=== PATIENT | female | born 1965 | race African-American/Black ===

== ENCOUNTER 2016-07-19 14:28 | Emergency (ER) | payer OTHER ==
[2016-07-19 14:33] VITALS: BP 119/79; PULSE 89; TEMP 98.2; BMI 30.1
--- NOTE | 2016-07-19 15:48 | PDOC ---
History of Present Illness - General Chief Complaint: Cold Symptoms Stated Complaint: BODY ACHES Time Seen by Provider: 07/19/16 15:13 History Source: Patient Exam Limitations: No Limitations - History of Present Illness Initial Comments: 07/19/16 15:42 51 yr female no medical history c/o 2 weeks pain , soreness to arms, legs back. Pt denies fever or chills no abd pain neg weight loss or gain. Pt denies foreign travel Severity: mild Past History - Past Medical History Allergies/Adverse Reactions: Allergies Allergy/AdvReac Type Severity Reaction Status Date / Time No Known Allergies Allergy Verified 07/19/16 14:30 Home Medications: Ambulatory Orders Ibuprofen [Motrin -] 600 mg PO TID PRN #21 tablet 07/19/16 Psychiatric Problems: Yes (ANXIETY.) - Surgical History Abdominal Surgery: Yes - Psycho/Social/Smoking Cessation Hx Anxiety: Yes Suicidal Ideation: No Smoking Status: Yes Smoking History: Former smoker Have you smoked in the past 12 months: Yes Number of Cigarettes Smoked Daily: 12 If you are a former smoker, when did you quit?: 1 year ago Information on smoking cessation initiated: No Hx Alcohol Use: No Drug/Substance Use Hx: No Substance Use Type: None Review of Systems - Review of Systems Able to Perform ROS?: Yes Is the patient limited Russian proficient: No Constitutional: No: Symptoms Reported HEENTM: No: Symptoms Reported Respiratory: No: Symptoms reported Cardiac (ROS): No: Symptoms Reported ABD/GI: No: Symptoms Reported : No: Symptoms Reported Musculoskeletal: Yes: See HPI, Muscle Pain, Muscle Weakness *Physical Exam - Vital Signs Last Vital Signs Temp Pulse Resp BP Pulse Ox 98.2 F 89 18 119/79 99 07/19/16 14:31 07/19/16 14:31 07/19/16 14:31 07/19/16 14:31 07/19/16 14:31 - Physical Exam General Appearance: Yes: Nourished, Appropriately Dressed HEENT: positive: EOMI, DIRK, TMs Normal, Pharynx Normal Neck: positive: Supple. negative: Tender, Lymphadenopathy (R), Lymphadenopathy (L) Respiratory/Chest: positive: Lungs Clear, Normal Breath Sounds. negative: Chest Tender Cardiovascular: positive: Regular Rhythm, Regular Rate Gastrointestinal/Abdominal: positive: Normal Bowel Sounds, Soft Extremity: positive: Normal Capillary Refill, Normal Inspection, Normal Range of Motion Integumentary: positive: Normal Color, Dry, Warm Neurologic: positive: Fully Oriented, Alert, Normal Mood/Affect, Normal Response , Motor Strength 06/24 ED Treatment Course - LABORATORY CBC & Chemistry Diagram: 07/19/16 15:50 07/19/16 15:50 Medical Decision Making - Medical Decision Making 07/19/16 15:44 cc: muscle pain , muscle weakness for 2 weeks denies fever, no abd pain neg nvd neg incontinence of urine or bowel neg chest pain or nasuea, pt denies fatigue will check labs, toradol, urine pt has apt MondayJuly 22 with her PMD 07/19/16 15:48 pt states her pain has improved after the toradol injection, I have given pt copies of her labs, all questions asked and answered. Pt will follow with her PMD monday as planned. Pt asking for work note for 2 days. 07/19/16 15:49 07/19/16 16:04 07/19/16 18:47 07/19/16 18:48 *DC/Admit/Observation/Transfer Diagnosis at time of Disposition: Muscle pain - Discharge Dispostion Disposition: HOME Condition at time of disposition: Fair - Prescriptions Prescriptions: Ibuprofen [Motrin -] 600 mg PO TID PRN #21 tablet PRN Reason: Pain - Patient Instructions Additional Instructions: take motrin as directed for any pain follow with your doctor as scheduled on Monday bring copies of the labs with you Drink pleanty of water to stay hydrated - Post Discharge Activity Work/School Note: Back to Work
[2016-07-19 16:01] LABS: URINE APPEARANCE CLEAR; URINE BILIRUBIN NEGATIVE (NEGATIVE); URINE BLOOD NEGATIVE (NEGATIVE); URINE COLOR STRAW; URINE GLUCOSE (UA) NEGATIVE (NEGATIVE); URINE KETONE NEGATIVE (NEGATIVE); URINE LEUK ESTERASE NEGATIVE (NEGATIVE); URINE NITRITE NEGATIVE (NEGATIVE); URINE PROTEIN NEGATIVE (NEGATIVE); URINE UROBILINOGEN NEGATIVE E.U./dl (0.2-1.0)
[2016-07-19 16:04] LABS: BASOPHIL 0.8 % (0-2.0); EOSINOPHIL 2.6 % (0-4.5); MCH 28.3 pg (25.7-33.7); MCHC 32.4 g/dl (32.0-36.0); MEAN CELL VOLUME 87.1 fl (80-96); NEUTROPHILS 54.2 % (42.8-82.8); PLATELET COUNT 258 K/MM3 (134-434); RDW 12.9 % (11.6-15.6); WHITE BLOOD COUNT 6.4 K/mm3 (4.0-10.0)
[2016-07-19] MEDS ORDERED: KETOROLAC TROMETHAMINE 60 MG/2 ML VIAL IM ONE (16:43)
[2016-07-19] MEDS ORDERED: KETOROLAC TROMETHAMINE 60 MG/2 ML VIAL ONE (16:56)
[2016-07-19 16:58] LABS: ALBUMIN 3.7 g/dl (3.4-5.0); BILIRUBIN,TOTAL 0.3 mg/dL (0.2-1.0); CALCIUM 8.9 mg/dL (8.5-10.1); COCKROFT - GAULT 72.5985; TOT PROT 7.1 g/dl (6.4-8.2)
== END 2016-07-19 17:17 | disposition home or self-care (01) ==
LOC: JERFT 14:28
PROC: 3E0233Z Introduction of Anti-inflammatory into Muscle, Percutaneous Approach (ICD-10-PCS; principal; 2016-07-19)
DX: M62.81 Muscle weakness (generalized) (principal); M79.601 Pain in right arm; M79.602 Pain in left arm; M79.604 Pain in right leg; M79.605 Pain in left leg; M54.89 Other dorsalgia
CPT/HCPCS: 36415; 80053; 81003; 82330; 83735; 84703; 85025; 86618; 99281-25

== ENCOUNTER 2016-12-22 16:16 | Emergency (ER) | payer OTHER ==
--- NOTE | 2016-12-22 16:19 | PDOC ---
Rapid Medical Evaluation Time Seen by Provider: 12/22/16 16:17 Medical Evaluation: Allergies Allergy/AdvReac Type Severity Reaction Status Date / Time No Known Allergies Allergy Verified 07/19/16 14:30 12/22/16 16:18 I have performed a brief in-person evaluation of this patient. The patient presents with a chief complaint of: bleach in left eye. Irrigated with saline Pertinent physical exam findings: mild erythema to sclera, no tearing, No visual changes, c/o tingling I have ordered the following: none-fast track The patient will proceed to the ED for further evaluation.
[2016-12-22 16:20] VITALS: BP 129/70; PULSE 97; TEMP 98; BMI 32.1
--- NOTE | 2016-12-22 17:21 | PDOC ---
History of Present Illness - General Chief Complaint: Eye Problem Stated Complaint: INJURY Time Seen by Provider: 12/22/16 16:17 History Source: Patient Exam Limitations: No Limitations - History of Present Illness Initial Comments: 12/22/16 17:15 Patient came for evaluation of bleach splash in a diluted solution to her left eye. was at work and a dirty rag splashed into the bucket with a bleach solution was and it splashed into her left eye. used 1 L of saline eye wash at work but came for evaluation. still has some tingling however visual acuity is within normal limits. No other injury. Occurred: reports: just prior to arrival, this afternoon Severity: reports: moderate Pain Location: reports: face Loss of Consciousness: no loss of consciousness Past History - Travel Traveled outside of the country in the last 30 days: No Close contact w/someone who was outside of country & ill: No - Past Medical History Allergies/Adverse Reactions: Allergies Allergy/AdvReac Type Severity Reaction Status Date / Time No Known Allergies Allergy Verified 12/22/16 16:20 Home Medications: Ambulatory Orders Erythromycin 0.5% Eye Ointment [Erythromycin 0.5% Eye Ointment -] 1 applic OS Q3H6XD #1 tube 12/22/16 COPD: No Psychiatric Problems: Yes (ANXIETY.) - Surgical History Abdominal Surgery: Yes - Suicide/Smoking/Psychosocial Hx Smoking Status: Yes Smoking History: Current every day smoker Have you smoked in the past 12 months: Yes Number of Cigarettes Smoked Daily: 5 If you are a former smoker, when did you quit?: 1 year ago Information on smoking cessation initiated: No Hx Alcohol Use: No Drug/Substance Use Hx: No Substance Use Type: None Review of Systems - Review of Systems Able to Perform ROS?: Yes Is the patient limited [place]an proficient: Yes Constitutional: Yes: See HPI, Malaise. No: Symptoms Reported, Fever HEENTM: Yes: Symptoms Reported, See HPI, Eye Pain, Tearing. No: Blurred Vision , Recent change in vision, Double Vision All Other Systems: Reviewed and Negative *Physical Exam - Vital Signs Last Vital Signs Temp Pulse Resp BP Pulse Ox 98 F 97 H 18 129/70 98 12/22/16 16:17 12/22/16 16:17 12/22/16 16:17 12/22/16 16:17 12/22/16 16:17 - Physical Exam General Appearance: Yes: Nourished, Appropriately Dressed, Apparent Distress, Mild Distress, Moderate Distress HEENT: positive: DIRK (with injected left sclera= no ulceration or corneal defects noted, visual acuity 20/20 bilateral ), TMs Normal, Pharynx Normal Neck: positive: Supple. negative: Tender Respiratory/Chest: positive: Lungs Clear Musculoskeletal: positive: Normal Inspection Extremity: positive: Normal Capillary Refill, Normal Inspection, Normal Range of Motion Integumentary: positive: Normal Color, Dry, Warm Neurologic: positive: patient care associate II-XII NML intact, Fully Oriented, Alert, Normal Mood/ Affect, Normal Response, Motor Strength 5/5 Progress Note - Progress Note Progress Note: Bleach splash, with initial pH of greater than 7.5. We will irrigate to 7 Medical Decision Making - Medical Decision Making 12/22/16 17:52 1 L of normal saline completed, pH between 7 and 7.5. Visual acuity 20/20 bilaterally. We will provide additional liter of IV saline to left eye for irrigation 12/22/16 19:33 second liter of normal saline completed. PH is 7, states feels much improved. Erythromycin ointment appld patient understands will follow up with ophthalmology tomorrow *DC/Admit/Observation/Transfer Diagnosis at time of Disposition: Chemical conjunctivitis of left eye - Discharge Dispostion Disposition: HOME Condition at time of disposition: Stable Admit: No - Prescriptions Prescriptions: Erythromycin 0.5% Eye Ointment [Erythromycin 0.5% Eye Ointment -] 1 applic OS Q3H6XD #1 tube - Referrals Referrals: Anupam Morrow [Staff Physician] - - Patient Instructions Printed Discharge Instructions: DI for Chemical Eye Burn Additional Instructions: Continue using normal saline/saline eye irrigation tonight before bed Erythromycin ophthalmic ointment 3 times a day for the next 2 days then as needed Have thorough evaluation by ophthalmology tomorrow Return to emergency department in pain, redness, visual changes. - Post Discharge Activity Forms/Work/School Notes: Back to Work
[2016-12-22] MEDS ORDERED: ERYTHROMYCIN 0.5% OPHTHALMIC OINTMENT 3.5 GM TUBE OS ONE (17:55)
[2016-12-22] MEDS ORDERED: ERYTHROMYCIN 0.5% OPHTHALMIC OINTMENT 3.5 GM TUBE ONE (18:01)
== END 2016-12-22 18:12 | disposition home or self-care (01) ==
LOC: JERFT 16:16
PROC: 4A07X0Z Measurement of Visual Acuity, External Approach (ICD-10-PCS; principal; 2016-12-22)
PROC: 3E1CX8Z Irrigation of Eye using Irrigating Substance (ICD-10-PCS; 2016-12-22)
DX: T54.91XA Toxic effect of unspecified corrosive substance, accidental (unintentional), initial encounter (principal); H10.212 Acute toxic conjunctivitis, left eye; Y92.128 Other place in nursing home as the place of occurrence of the external cause; Y93.H9 Activity, other involving exterior property and land maintenance, building and construction; Y99.0 Civilian activity done for income or pay
CPT/HCPCS: 99281-25

== ENCOUNTER 2017-09-10 19:39 | Emergency (ER) | payer OTHER ==
[2017-09-10 19:45] VITALS: BP 138/74; PULSE 86; TEMP 98.7; BMI 30.9
--- NOTE | 2017-09-10 20:13 | PDOC ---
Attending Attestation - Physicial Exam PE: 09/10/17 22:09 Agree with resident exam - Medical Decision Making 09/10/17 22:09 Pt's UA is normal. She received motrin and imitrex and feels the same. Pt will be sent for CT head 09/10/17 22:31 CT head is normal. Pt has + nitrites in urine, however she is only on day 2 of abx. She is feeling imrpoved and she will be asked to follow with neuro outpatinet. 09/10/17 22:35 THIS IS A PRELIMINARY REPORT FROM IMAGING RESIDENTIAL LEASING AGENT DATE OF SERVICE: 2017-09-10 22:05:54 IMAGES: 132 EXAM: CT head without contrast HISTORY: Rule out bleed. Abnormal headache. COMPARISON: None. FINDINGS: 1. The study is degraded by artifact that appears to be detector type artifact. 2. There is no definite evidence of an acute intracranial process and no evidence of intracranial hemorrhage or mass effect. If there is a clinical suspicion of an acute intracranial process MRI of the brain may be helpful for further evaluation. 3. The ventricles are normal size. 4. The visualized portions of the orbits, paranasal and mastoid sinuses are unremarkable. 5. The bony structures are unremarkable in appearance. Individualized dose optimization techniques were used for this CT. <Nadja Zendejas - Last Filed: 09/10/17 22:35> - Resident Resident Name: Irene Woodard - ED Attending Attestation I have performed the following: I have examined & evaluated the patient, The case was reviewed & discussed with the resident, I agree w/resident's findings & plan - HPI HPI: 09/10/17 21:34 The patient is a 52 year old female, with no significant past medical history, who presents to the emergency department with, a headache. She describes her headache as right sided, dull pain, ranking an 8/10 with associated photophobia , nausea, and different from previous headaches. She reports the right side of her face to feel funny but, denies and numbness or tingling to the face. She reports to have been feeling off for the past week with associated SOB lasting a few minutes which resolves on her own or with the aid of her daughter s inhaler. She went to her PCP 3 days ago and was diagnosed with a UTI which she took antibiotics for. Allergies: NKA Past surgical history: None reported. Social history: Smoker (2 cigarettes per day). - Physicial Exam PE: 09/10/17 22:58 GENERAL: Awake, alert, and fully oriented, in no acute distress HEAD: No signs of trauma EYES: PERRLA, EOMI, sclera anicteric, conjunctiva clear ENT: Auricles normal inspection, hearing grossly normal, nares patent, oropharynx clear without exudates. Moist mucosa NECK: Normal ROM, supple, no lymphadenopathy, JVD, or masses LUNGS: Breath sounds equal, clear to auscultation bilaterally. No wheezes, and no crackles HEART: Regular rate and rhythm, normal S1 and S2, no murmurs, rubs or gallops ABDOMEN: Soft, nontender, normoactive bowel sounds. No guarding, no rebound. No masses EXTREMITIES: Normal range of motion, no edema. No clubbing or cyanosis. No cords, erythema, or tenderness NEUROLOGICAL: Cranial nerves II through XII grossly intact. Normal speech, normal gait SKIN: Warm, Dry, normal turgor, no rashes or lesions noted. <Brad Marrero - Last Filed: 09/10/17 22:58> Attestations - Attestations 09/10/17 21:34 Documentation prepared by Brad Marrero, acting as center medical and lab director for Nadja Zendejas MD. <Brad Marrero - Last Filed: 09/10/17 22:58>
[2017-09-10] MEDS ORDERED: IBUPROFEN 600 MG TABLET (FP) PO ONE ×2 (20:39→21:20)
--- NOTE | 2017-09-10 20:45 | PDOC ---
History of Present Illness - General Chief Complaint: Headache Stated Complaint: HEADACHE Time Seen by Provider: 09/10/17 20:07 - History of Present Illness Initial Comments: 09/10/17 20:48 Lucy Garza is a 52yo woman with no reported chronic medical conditions who presents today complaining of an unusual headache as well as generally feeling "off" for the past week. She states that starting last Monday she has felt "funny" though she had no specific complaints at that time. Throughout the week , she has experienced intermittent shortness of breath that occurs randomly; it has not been associated with exertion, stress, allergen exposure. Ms Garza says that the SOB would resolve if she sat calmly for a few minutes. She does not have diagnosed allergies or asthma, though her daughter does have asthma. She tried her daughter's inhaler with resolution of symptoms. Ms Garza also reports feeling lightheaded at times throughout the week, but she cannot remember exactly how long these episodes lasted. She does not recall that they occured at any specific time of day or whether they were associated with activity. She does not believe that anything brought this feeling on. Today, she felt funny again when she woke up but did not have a headache when she woke. At some point during the day, she states that she started having a headache but does not remember exactly when. She does not believe that it started suddenly. She does report occasional headaches but says this one is different. It is located only on the right side of her head, 8/10 throbbing dull pain, associated with light sensitivity and nausea. She also reports that the right side of her face feels "funny" but denies that it feels numb, tingling , painful, or weak. She denies any fevers, focal neurological symptoms, stiff or painful neck, vomiting, or rash. She has not tried any medications at home to help with her headache. Past History - Past Medical History Allergies/Adverse Reactions: Allergies Allergy/AdvReac Type Severity Reaction Status Date / Time No Known Allergies Allergy Verified 09/10/17 19:45 Home Medications: Ambulatory Orders Erythromycin 0.5% Eye Ointment [Erythromycin 0.5% Eye Ointment -] 1 applic OS Q3H6XD #1 tube 12/22/16 Sumatriptan Succinate [Imitrex] 25 mg PO QID PRN #30 tablet 09/10/17 COPD: No Psychiatric Problems: Yes (ANXIETY.) - Surgical History Abdominal Surgery: Yes - Suicide/Smoking/Psychosocial Hx Smoking Status: Yes Smoking History: Current every day smoker Have you smoked in the past 12 months: Yes Number of Cigarettes Smoked Daily: 2 If you are a former smoker, when did you quit?: 1 year ago Information on smoking cessation initiated: No Hx Alcohol Use: No Drug/Substance Use Hx: No Substance Use Type: None Review of Systems - Review of Systems Comments:: 09/10/17 20:45 General: No fevers, no chills, no weight or appetite change, no malaise. + intermittent lightheadedness HEENT: No changes in vision, no changes in hearing, no congestion, no sore throat. +headache CV: No chest pain, no palpitations, no LE edema Pulm: +Occasional SOB. No cough, no wheezing GI: No nausea or vomiting, no change in bowel habits, no melena : +Currently treated for UTI, +frequency. No urgency, no dysuria Musc: No back pain, no joint swelling, no recent injury Skin: No rash, no lesions, no erythema Endo: No excessive thirst, no heat/cold intolerance Heme: No unusual bruising or bleeding, no swollen glands Neuro: No syncope, no numbness/tingling, no focal weakness. +"funny" sensation on right face Vasc: No claudication Psych: No recent change in mood, no SI or HI *Physical Exam - Vital Signs Last Vital Signs Temp Pulse Resp BP Pulse Ox 98.7 F 86 18 138/74 100 09/10/17 19:43 09/10/17 19:43 09/10/17 19:43 09/10/17 19:43 09/10/17 19:43 - Physical Exam Comments: 09/10/17 20:46 General: Comfortable, no acute distress. Pleasant and cooperative. HEENT: PERRL, EOMI, MMM, voice normal, normal neck ROM, no LAD Cards: RRR, no murmur appreciated Pulm: Comfortable on room air, clear to auscultation bilaterally Abd: Soft, nontender, nondistended : No CVA tenderness Rectal: Normal tone, no blood noted, no perianal lesions Ext: Atraumatic. No LE edema. ROM intact. Strength 5/5 and equal bilaterally Vasc: Extremities WWP. Palpable radial and pedal pulses bilaterally Neuro: A&Ox3, CN grossly intact, normal speech, motor grossly intact and symmetric. Sensation to light touch on right face feels "different" than left; intact and equal bilaterally in extremities Psych: Mood appropriate to situation Medical Decision Making - Medical Decision Making 09/10/17 20:59 Lucy Garza is a 52yo woman who presents today with a right-sided headache associated with nausea, light sensitivity, and a "funny" feeling on the right side of her face. She has no other associated symptoms, though she does report feeling off all week as well as occasional SOB and lightheadedness that do not appear to be related to any specific activity or time of day. - Headache may be a migraine though she denies a previous history of migraine headache. Will give 600mg ibuprofen and reassess pain. - CT head w/o contrast to rule out intracranial pathology though low suspicion as there are no objective focal neurological symptoms. - Lightheadedness and SOB are currently not present, lungs are clear on auscultation, she is satting well on room air, and there are no other abnormalities on physical exam. As the symptoms have resolved, there is very low suspicion for any serious lung pathology, and the CT head will evaluate for any serious neurological pathology. 09/10/17 22:18 - Given sumatriptan and ibuprofen for headache. Reports continued pain after approximately 20-30 minutes. 1g acetaminophen ordered - CT head pending. If negative, will discharge home with follow up for migraine management. 09/10/17 22:37 - CT head/sinus completed, no acute pathology noted - Will discharge home. Should follow up with neurology for migraine management - UA returned still positive for UTI. Discussed importance of completing prescription of antibiotics; Ms Garza reports understanding. Recommending follow up with primary physician after completing course of abx. *DC/Admit/Observation/Transfer Diagnosis at time of Disposition: Migraine Qualifiers: Migraine type: unspecified Status migrainosus presence: without status migrainosus Intractability: not intractable Qualified Code(s): G43.909 - Migraine, unspecified, not intractable, without status migrainosus - Discharge Dispostion Disposition: HOME Condition at time of disposition: Good - Prescriptions Prescriptions: Sumatriptan Succinate [Imitrex] 25 mg PO QID PRN #30 tablet PRN Reason: Headache - Referrals Referrals: Koko Mrudock MD [Staff Physician] - - Patient Instructions Printed Discharge Instructions: Migraine Headaches (Alternative Therapy), Migraine -- Adult, DI for Migraine Additional Instructions: Discharge instructions: - You were seen in the ED for a headache. This headache is most likely a migraine. - Please see attached information on migraine headaches - You have been referred to a neurologist for additional headache management - You also had a urinalysis that showed that you still have a UTI. You should complete your previously prescribed antibiotics. It is recommended that you follow up with your primary physician after you complete your antibiotics. - Post Discharge Activity Forms/Work/School Notes: Back to Work
[2017-09-10] MEDS ORDERED: SUMATRIPTAN SUCCINATE 6 MG/0.5 ML VIAL SQ ONE (21:27)
[2017-09-10] MEDS ORDERED: SUMATRIPTAN SUCCINATE 6 MG/0.5 ML VIAL ONE (21:31)
[2017-09-10 21:42] LABS: URINE APPEARANCE CLEAR; URINE BILIRUBIN NEGATIVE (<2.0 mg/dL); URINE COLOR AMBER; URINE GLUCOSE (UA) NEGATIVE (NEGATIVE); URINE KETONE NEGATIVE (NEGATIVE); URINE LEUK ESTERASE TRACE (NEGATIVE); URINE NITRITE POSITIVE (NEGATIVE); URINE PROTEIN NEGATIVE (NEGATIVE); URINE UROBILINOGEN 4.0 E.U/dl mg/dL (0.2-1.0)
[2017-09-10 21:51] LABS: HCG,QUALITATIVE URINE NEGATIVE
[2017-09-10 22:00] LABS: EPI CELLS FEW /HPF (FEW); URINE BACTERIA FEW /hpf (NONE SEEN); URINE MUCUS RARE
[2017-09-10] MEDS ORDERED: ACETAMINOPHEN 500 MG TABLET (FP) PO ONE (22:08)
[2017-09-10] MEDS ORDERED: ACETAMINOPHEN 325 MG TABLET (FP) ONE ×2 (22:29→22:37)
== END 2017-09-10 22:50 | disposition home or self-care (01) ==
LOC: JER 19:39
PROC: 3E0233Z Introduction of Anti-inflammatory into Muscle, Percutaneous Approach (ICD-10-PCS; principal; 2017-09-10)
DX: G43.909 Migraine, unspecified, not intractable, without status migrainosus (principal); Z87.440 Personal history of urinary (tract) infections
CPT/HCPCS: 70450-TC; 81003; 81015; 84703; 99281-25

== ENCOUNTER 2017-11-16 23:31 | Emergency (ER) | payer OTHER ==
[2017-11-17 00:10] VITALS: BMI 31.5
--- NOTE | 2017-11-17 00:11 | PDOC ---
History of Present Illness - General Chief Complaint: Nausea Stated Complaint: WEAKNESS Time Seen by Provider: 11/16/17 23:55 - History of Present Illness Initial Comments: 11/17/17 00:10 Patient denies N/V, F,C, CP, SOB, urinary complaints, abdominal pain, diarrhea, constipation, lightheadedness, weakness, sensory changes. PMHx: as noted above ROS: as noted SHx: Allergies: Past History - Past Medical History Allergies/Adverse Reactions: Allergies Allergy/AdvReac Type Severity Reaction Status Date / Time No Known Allergies Allergy Verified 11/17/17 00:09 Home Medications: Ambulatory Orders Erythromycin 0.5% Eye Ointment [Erythromycin 0.5% Eye Ointment -] 1 applic OS Q3H6XD #1 tube 12/22/16 Sumatriptan Succinate [Imitrex] 25 mg PO QID PRN #30 tablet 09/10/17 COPD: No Psychiatric Problems: Yes (ANXIETY.) - Surgical History Abdominal Surgery: Yes - Suicide/Smoking/Psychosocial Hx Smoking Status: Yes Smoking History: Current every day smoker Have you smoked in the past 12 months: Yes Number of Cigarettes Smoked Daily: 2 If you are a former smoker, when did you quit?: 1 year ago Hx Alcohol Use: No Drug/Substance Use Hx: No Substance Use Type: None Review of Systems - Review of Systems Comments:: 11/17/17 00:10 GENERAL/CONSTITUTIONAL: No fever or chills. No weakness. HEAD, EYES, EARS, NOSE AND THROAT: No change in vision. No ear pain or discharge. No sore throat. CARDIOVASCULAR: No chest pain or shortness of breath RESPIRATORY: No cough, wheezing, or hemoptysis. GASTROINTESTINAL: No nausea, vomiting, diarrhea or constipation. GENITOURINARY: No dysuria, frequency, or change in urination. MUSCULOSKELETAL: No joint or muscle swelling or pain. No neck or back pain. SKIN: No rash NEUROLOGIC: No headache, vertigo, loss of consciousness, or change in strength/ sensation. ENDOCRINE: No increased thirst. No abnormal weight change HEMATOLOGIC/LYMPHATIC: No anemia, easy bleeding, or history of blood clots. ALLERGIC/IMMUNOLOGIC: No hives or skin allergy. *Physical Exam - Physical Exam Comments: 11/17/17 00:10 GENERAL: Awake, alert, and fully oriented, in no acute distress HEAD: No signs of trauma, normocephalic, atraumatic EYES: PERRLA, EOMI, sclera anicteric, conjunctiva clear ENT: Auricles normal inspection, hearing grossly normal, nares patent, oropharynx clear without exudates. Moist mucosa NECK: Normal ROM, supple, no lymphadenopathy, JVD, or masses LUNGS: No distress, speaks full sentences, clear to auscultation bilaterally HEART: Regular rate and rhythm, normal S1 and S2, no murmurs, rubs or gallops, peripheral pulses normal and equal bilaterally. ABDOMEN: Soft, nontender, normoactive bowel sounds. No guarding, no rebound. No masses EXTREMITIES : Normal inspection, Normal range of motion, no edema. No clubbing or cyanosis. NEUROLOGICAL: Cranial nerves II through XII grossly intact. Normal speech, normal gait, no focal sensorimotor deficits SKIN: Warm, Dry, normal turgor, no rashes or lesions noted *DC/Admit/Observation/Transfer - Referrals - Patient Instructions Additional Instructions: Please return to the emergency department with any new or worsening symptoms or concerns. Please follow up with your primary care physician within 72 hours. - Post Discharge Activity - Attestations Physician Attestion: 11/17/17 00:11 I attest to the information provided in this note.
--- NOTE | 2017-11-17 01:25 | PDOC ---
History of Present Illness - General History Source: Patient Exam Limitations: No Limitations - History of Present Illness Initial Comments: 11/17/17 02:09 The patient is a 52 year old female with no significant past medical history who presents to the ED with complaints of nausea for two days. Patient states for the past two days shes had intermittent episodes of feeling very hungry, eating, and then becoming nauseous. She reports one episode slight abdominal pain and slight dizziness associated with present symptoms. She states her pulse was at 101 yesterday and 105 today. Patient states she recently was diagnosed with a UTI and was treated with antibiotics. Patient states she is currently on menopause and her last menstrual cycle was 3 years ago. Denies vomiting. Denies palpitations. Denies dysuria or change in urinary output. Denies chest pain or shortness of breath. Denies focal numbness/weakness /tingling. Denies back pain or neck pain. Denies any other symptoms. <Hemant Martinez - Last Filed: 11/17/17 02:09> <Prachi Dewey - Last Filed: 11/17/17 02:23> - General Chief Complaint: Nausea Stated Complaint: WEAKNESS Time Seen by Provider: 11/16/17 23:55 Past History <Hemant Martinez - Last Filed: 11/17/17 02:09> - Past Medical History COPD: No Psychiatric Problems: Yes (ANXIETY.) - Surgical History Abdominal Surgery: Yes - Suicide/Smoking/Psychosocial Hx Smoking Status: Yes Smoking History: Former smoker Have you smoked in the past 12 months: No Number of Cigarettes Smoked Daily: 2 If you are a former smoker, when did you quit?: 6 months ago Information on smoking cessation initiated: No Hx Alcohol Use: No Drug/Substance Use Hx: No Substance Use Type: None <Prachi Dewey - Last Filed: 11/17/17 02:23> - Past Medical History Allergies/Adverse Reactions: Allergies Allergy/AdvReac Type Severity Reaction Status Date / Time No Known Allergies Allergy Verified 11/17/17 00:09 Home Medications: Ambulatory Orders Erythromycin 0.5% Eye Ointment [Erythromycin 0.5% Eye Ointment -] 1 applic OS Q3H6XD #1 tube 12/22/16 Sumatriptan Succinate [Imitrex] 25 mg PO QID PRN #30 tablet 09/10/17 Cephalexin Monohydrate [Keflex -] 500 mg PO BID #14 capsule 11/17/17 Review of Systems - Review of Systems Able to Perform ROS?: Yes Comments:: 11/17/17 02:09 GENERAL/CONSTITUTIONAL: No fever or chills. No weakness. HEAD, EYES, EARS, NOSE AND THROAT: No change in vision. No ear pain or discharge. No sore throat. GASTROINTESTINAL: + nausea, increased hunger, abdominal pain. No, vomiting, diarrhea or constipation. GENITOURINARY: No dysuria, frequency, or change in urination. CARDIOVASCULAR: No chest pain or shortness of breath. RESPIRATORY: No cough, wheezing, or hemoptysis. MUSCULOSKELETAL: No joint or muscle swelling or pain. No neck or back pain. SKIN: No rash NEUROLOGIC: + dizziness. No headache, vertigo, loss of consciousness, or change in strength/sensation. ENDOCRINE: No increased thirst. No abnormal weight change. HEMATOLOGIC/LYMPHATIC: No anemia, easy bleeding, or history of blood clots. ALLERGIC/IMMUNOLOGIC: No hives or skin allergy. All Other Systems: Reviewed and Negative <Hemant Martinez - Last Filed: 11/17/17 02:09> *Physical Exam - Vital Signs Last Vital Signs Temp Pulse Resp BP Pulse Ox 97.6 F 86 20 132/88 99 11/16/17 23:40 11/16/17 23:40 11/16/17 23:40 11/16/17 23:40 11/16/17 23:40 - Physical Exam Comments: 11/17/17 02:09 Constitutional: Awake, alert, oriented. No acute distress. Head: Normocephalic. Atraumatic Eyes: PERRL. EOMI. Conjunctivae are not pale. ENT: Mucous membranes are moist and intact. Posterior pharynx without exudates or erythema. Uvula midline. Neck: Supple. Full ROM. No lymphadenopathy. Cardiovascular: Regular rate. Regular rhythm. S1, S2 regular. Distal pulses are 2+ and symmetric. Pulmonary/Chest: No evidence of respiratory distress. Clear to auscultation bilaterally No wheezing, rales or rhonchi. Abdominal: Soft and non-distended. There is no tenderness. No rebound, guarding or rigidity. No organomegaly. No palpable masses. Good bowel sounds. Back: No CVA tenderness. Musculoskeletal: No edema. No cyanosis. No clubbing. Full range of motion in all extremities. Nocalf tenderness. Radial/pedal pulses are intact and 2+ bilaterally Skin: Skin is warm and dry. No petechiae. No purpura. Neurological: Alert and oriented to person, place, and time. Cranial nerves II -XII are grossly intact. Normal speech. Strength is grossly symmetric. No sensory deficits. Psychiatric: Good eye contact. Normal interaction, affect and behavior. <Hemant Martinez - Last Filed: 11/17/17 02:09> - Vital Signs Last Vital Signs Temp Pulse Resp BP Pulse Ox 97.6 F 86 20 132/88 99 11/16/17 23:40 11/16/17 23:40 11/16/17 23:40 11/16/17 23:40 11/16/17 23:40 <Prachi Dewey - Last Filed: 11/17/17 02:23> Heart Score/ECG Review - ECG Intrepretation Comment:: 11/17/17 02:22 sinus at 78, nl axis, nl interval, no acute st/t wave findings <Prachi Dewey - Last Filed: 11/17/17 02:23> ED Treatment Course - ADDITIONAL ORDERS Additional order review: Laboratory Results 11/17/17 01:46 Urine Color Ltyellow Urine Appearance Clear Urine pH 7.0 D Ur Specific [place] 1.019 Urine Protein Negative Urine Glucose (UA) Negative Urine Ketones Negative Urine Blood Negative Urine Nitrite Negative Urine Bilirubin Negative Urine Urobilinogen Negative Ur Leukocyte Esterase 3+ H <Hemant Martinez - Last Filed: 11/17/17 02:09> Medical Decision Making - Medical Decision Making 11/17/17 01:54 a/p: 52yo female with 2 episodes of feeling hungry, eating and then becoming nauseated -seen by the nurse at her job who stated she had a pulse rate of 101 and 105 on each day -pt denies cp/sob -no vomiting, no diarrhea or constipation -has had urinary freq, recently treated for a uti, no dysuria -no f/c -no rhinorrhea or sore throat -no abd pain -no vaginal complaints - pt is post menopausal -pt denies all complaints at this time -episodes occur at 1130a each day on monday and -pt ambulates in the ED with a steady gait 11/17/17 01:56 will check labs, tsh, glucose, ua, will give ivf hydration, ekg, cxr will monitor and reassess 11/17/17 02:14 cxr clear ua + uti 11/17/17 02:19 UTI was over 2 months ago will give rocephin iv here and then keflex for d/c <Prachi Dewey - Last Filed: 11/17/17 02:23> *DC/Admit/Observation/Transfer - Attestations Scribe Attestion: 11/17/17 02:09 Documentation prepared by Hemant Martinez, acting as medical claims examiner for Prachi Dewey DO <Hemant Martinez - Last Filed: 11/17/17 02:09> <Prachi Dewey - Last Filed: 11/17/17 02:23> Diagnosis at time of Disposition: UTI (urinary tract infection) - Discharge Dispostion Condition at time of disposition: Stable - Prescriptions Prescriptions: Cephalexin Monohydrate [Keflex -] 500 mg PO BID #14 capsule - Referrals Referrals: Rubens Cross MD [Staff Physician] - - Patient Instructions Printed Discharge Instructions: DI for Urinary Tract Infection (UTI) Additional Instructions: Please return to the emergency department with any new or worsening symptoms or concerns. Please follow up with your primary care physician within 72 hours. Please take all antibiotics as prescribed. Please drink plenty of water.
[2017-11-17 02:02] LABS: URINE APPEARANCE CLEAR; URINE BILIRUBIN NEGATIVE (<2.0 mg/dL); URINE COLOR LTYELLOW; URINE GLUCOSE (UA) NEGATIVE (NEGATIVE); URINE KETONE NEGATIVE (NEGATIVE); URINE NITRITE NEGATIVE (NEGATIVE); URINE PROTEIN NEGATIVE (NEGATIVE); URINE UROBILINOGEN NEGATIVE mg/dL (0.2-1.0)
[2017-11-17 02:04] LABS: URINE LEUK ESTERASE 3+ (NEGATIVE)
[2017-11-17 02:06] LABS: EPI CELLS FEW /HPF (FEW); URINE MUCUS RARE
[2017-11-17] MEDS ORDERED: CEFTRIAXONE 1 GM in DEXTROSE 5%-WATER - 100 ML IVPB ONE (02:23)
[2017-11-17] MEDS ORDERED: SODIUM CHLORIDE 0.9% 1000 ML INFUS.BAG IV ONE (02:23)
[2017-11-17 02:28] LABS: BASO % 1.3 % (0-2.0); HEMATOCRIT 35.2 % (32.4-45.2); HEMOGLOBIN 11.7 GM/dL (10.7-15.3); LYMPH % 36.4 % (8-40); MCH 28.6 pg (25.7-33.7); MCHC 33.1 g/dl (32.0-36.0); MEAN CELL VOLUME 86.3 fl (80-96); MEAN PLT VOLUME 8.3 fl (7.5-11.1); MONO % 10.6 % (3.8-10.2); NEUT % 48.7 % (42.8-82.8); PLATELET COUNT 261 K/MM3 (134-434); RBC 4.08 M/mm3 (3.60-5.2); RDW 13.2 % (11.6-15.6); WHITE BLOOD COUNT 5.8 K/mm3 (4.0-10.0)
[2017-11-17 03:01] LABS: ALBUMIN 3.2 g/dl (3.4-5.0); ALK PHOS 72 U/L (45-117); ANION GAP 6 MMOL/L (8-16); BILIRUBIN,TOTAL 0.3 mg/dL (0.2-1); BLOOD UREA NITROGEN 19 mg/dL (7-18); CALCIUM 8.7 mg/dL (8.5-10.1); CHLORIDE 106 mmol/L (98-107); CO2 28 mmol/L (21-32); CREATININE 0.9 mg/dL (0.55-1.3); GLUCOSE,RANDOM 97 mg/dL (74-106); MAGNESIUM 2.1 mg/dL (1.8-2.4); POTASSIUM 4.2 mmol/L (3.5-5.1); SGOT/AST 16 U/L (15-37); SGPT/ALT 18 U/L (13-61); SODIUM 139 mmol/L (136-145); TOT PROT 6.7 g/dl (6.4-8.2)
--- NOTE | 2017-11-17 03:07 | PDOC ---
*Physical Exam - Vital Signs Last Vital Signs Temp Pulse Resp BP Pulse Ox 97.6 F 86 20 132/88 99 11/16/17 23:40 11/16/17 23:40 11/16/17 23:40 11/16/17 23:40 11/16/17 23:40 ED Treatment Course - LABORATORY CBC & Chemistry Diagram: 11/17/17 02:21 11/17/17 02:21 - ADDITIONAL ORDERS Additional order review: Laboratory Results 11/17/17 11/17/17 02:21 01:46 Sodium 139 Potassium 4.2 Chloride 106 Carbon Dioxide 28 Anion Gap 6 L BUN 19 H Creatinine 0.9 Creat Clearance w eGFR > 60 Random Glucose 97 Calcium 8.7 Magnesium 2.1 Total Bilirubin 0.3 AST 16 ALT 18 Alkaline Phosphatase 72 Creatine Kinase 110 Troponin I < 0.02 Total Protein 6.7 Albumin 3.2 L TSH 1.02 Urine Color Ltyellow Urine Appearance Clear Urine pH 7.0 D Ur Specific [place] 1.019 Urine Protein Negative Urine Glucose (UA) Negative Urine Ketones Negative Urine Blood Negative Urine Nitrite Negative Urine Bilirubin Negative Urine Urobilinogen Negative Ur Leukocyte Esterase 3+ H Urine WBC (Auto) 16 Urine RBC (Auto) 1 Ur Epithelial Cells Few Urine Mucus Rare 11/17/17 02:21 RBC 4.08 MCV 86.3 MCHC 33.1 RDW 13.2 MPV 8.3 Neutrophils % 48.7 Lymphocytes % 36.4 Monocytes % 10.6 H Eosinophils % 3.0 Basophils % 1.3 Medical Decision Making - Medical Decision Making 11/17/17 03:06 sign out taken at 2AM Pt is 52 yo F presenting with nausea. Labs unremarkable UA consistent with UTI Pt reassessed - is well appearing and with no complaints currently. Tolerating PO, benign abdomen Tx initiated for UTI Pt is well appearing, with normal vitals. Clinically stable for DC at this time. I discussed the physical exam findings, ancillary test results and final diagnoses with the patient. I answered all of the patient's questions. The patient was satisfied with the care received and felt comfortable with the discharge plan and treatment plan. The patient agrees to follow up with the primary care physician within 24-72 hours. *DC/Admit/Observation/Transfer Diagnosis at time of Disposition: UTI (urinary tract infection) - Discharge Dispostion Condition at time of disposition: Stable - Prescriptions Prescriptions: Cephalexin Monohydrate [Keflex -] 500 mg PO BID #14 capsule - Referrals Referrals: Rubens Cross MD [Staff Physician] - - Patient Instructions Printed Discharge Instructions: DI for Urinary Tract Infection (UTI) Additional Instructions: Please return to the emergency department with any new or worsening symptoms or concerns. Please follow up with your primary care physician within 72 hours. Please take all antibiotics as prescribed. Please drink plenty of water. - Post Discharge Activity - Attestations Physician Attestion: 11/17/17 03:07 I, Dr. Hudson Rouse MD, attest that this document has been prepared under my direction and personally reviewed by me in its entirety. I further attest, that it accurately reflects all work, treatment, procedures and medical decision -making performed by me.
[2017-11-17] MEDS ORDERED: CEFTRIAXONE 1 GM/50 ML BAG ONE (03:13)
[2017-11-17 05:08] VITALS: BP 126/78; PULSE 73; TEMP 98.6
--- NOTE | 2017-11-17 11:27 | EKG ---
Test Reason : Blood Pressure : / mmHG Vent. Rate : 078 BPM Atrial Rate : 078 BPM P-R Int : 168 ms QRS Dur : 074 ms QT Int : 378 ms P-R-T Axes : 072 053 036 degrees QTc Int : 430 ms NORMAL SINUS RHYTHM NORMAL ECG WHEN COMPARED WITH ECG OF 08-SEP-2014 16:08, NO SIGNIFICANT CHANGE WAS FOUND Confirmed by PASQUALE MARIN MD ([id number]) on 11/17/2017 11:26:57 AM Referred By: Confirmed By:PASQUALE MARIN MD
== END 2017-11-17 05:14 | disposition home or self-care (01) ==
LOC: JER 23:31
DX: N39.0 Urinary tract infection, site not specified (principal)
CPT/HCPCS: 36415; 71045-TC-FY; 80053; 81003; 81015; 82550; 83735; 84443; 84484; 85025; 93005; 93010; 99282-25; J7030

== ENCOUNTER 2018-01-16 09:23 | Emergency (ER) | payer OTHER ==
[2018-01-16 09:36] VITALS: TEMP 98.2; BMI 32.5
[2018-01-16 10:28] LABS: URINE APPEARANCE CLEAR; URINE BILIRUBIN NEGATIVE (<2.0 mg/dL); URINE COLOR STRAW; URINE GLUCOSE (UA) NEGATIVE (NEGATIVE); URINE KETONE NEGATIVE (NEGATIVE); URINE LEUK ESTERASE 3+ (NEGATIVE); URINE NITRITE NEGATIVE (NEGATIVE); URINE PROTEIN NEGATIVE (NEGATIVE); URINE UROBILINOGEN NEGATIVE mg/dL (0.2-1.0)
--- NOTE | 2018-01-16 10:54 | PDOC ---
History of Present Illness - General Chief Complaint: Lightheaded Stated Complaint: DIZZINESS Time Seen by Provider: 01/16/18 10:14 History Source: Patient Exam Limitations: Clinical Condition - History of Present Illness Initial Comments: 01/16/18 10:48 Patient with no sig PMhx present with complains of 2 months h/o intermittent palpitations, SOB and dizziness which last for few mins and go away. Patient report she saw her PCP 4 months ago for physicial and exam and labs was unremarkable. Denies nausea, vomiting, sweats , CP, weakness, abdominal pains Timing/Duration: other (2 months) Past History - Past Medical History Allergies/Adverse Reactions: Allergies Allergy/AdvReac Type Severity Reaction Status Date / Time No Known Allergies Allergy Verified 11/17/17 00:09 Home Medications: Ambulatory Orders Erythromycin 0.5% Eye Ointment [Erythromycin 0.5% Eye Ointment -] 1 applic OS Q3H6XD #1 tube 12/22/16 Sumatriptan Succinate [Imitrex] 25 mg PO QID PRN #30 tablet 09/10/17 Cephalexin Monohydrate [Keflex -] 500 mg PO BID #14 capsule 11/17/17 Meclizine HCl 25 mg PO Q8H PRN #20 tablet 01/16/18 COPD: No Psychiatric Problems: Yes (ANXIETY.) - Surgical History Abdominal Surgery: Yes - Immunization History Immunization Up to Date: Yes - Suicide/Smoking/Psychosocial Hx Smoking Status: Yes Smoking History: Never smoked Have you smoked in the past 12 months: No Number of Cigarettes Smoked Daily: 2 If you are a former smoker, when did you quit?: 6 months ago Information on smoking cessation initiated: No Hx Alcohol Use: No Drug/Substance Use Hx: No Substance Use Type: None Review of Systems - Review of Systems Able to Perform ROS?: Yes Is the patient limited Romanian proficient: No Constitutional: No: Symptoms Reported, See HPI, Chills, Diaphoresis, Fever, Loss of Appetite, Malaise, Night Sweats, Weakness, Weight Stable, Unintentional Wgt. Loss, Unexplained wgt Loss, Other HEENTM: No: Symptoms Reported, See HPI, Eye Pain, Blurred Vision, Tearing, Recent change in vision, Double Vision, Cataracts, Ear Pain, Ocular Prothesis, Ear Discharge, Nose Pain, Nose Congestion, Tinnitus, Nose Bleeding, Hearing Loss , Throat Pain, Throat Swelling, Mouth Pain, Dental Problems, Difficulty Swallowing, Mouth Swelling, Other Respiratory: Yes: Symptoms reported, See HPI, Shortness of Breath, SOB with Exertion. No: Cough, Orthopnea, SOB at Rest, Stridor, Wheezing, Productive cough, Hemoptysis, Other Cardiac (ROS): Yes: See HPI, Palpitations. No: Chest Pain, Irregular Heart Rate , Lightheadedness, Syncope, Chest Tightness ABD/GI: No: Symptoms Reported, See HPI, Abdominal Distended, Abd. Pain w/ defecation, Blood Streaked Bowels, Constipated, Diarrhea, Difficulty Swallowing , Nausea, Poor Appetite, Poor Fluid Intake, Rectal Bleeding, Vomiting, Indigestion, Abdominal cramping, Tarry Stools, Other Neurological: Yes: Dizziness. No: Headache, Numbness, Paresthesia, Pre- Existing Deficit, Tingling, Unsteady Gait, Ataxia All Other Systems: Reviewed and Negative *Physical Exam - Vital Signs Last Vital Signs Temp Pulse Resp BP Pulse Ox 98.2 F 122 H 16 134/74 100 01/16/18 09:32 01/16/18 09:32 01/16/18 09:32 01/16/18 09:32 01/16/18 09:32 - Physical Exam General Appearance: Yes: Nourished, Appropriately Dressed. No: Apparent Distress HEENT: positive: DIRK, Normal ENT Inspection, Normal Voice, Symmetrical, TMs Normal, Pharynx Normal Neck: positive: Normal Thyroid, Supple. negative: Tender Respiratory/Chest: positive: Lungs Clear, Normal Breath Sounds. negative: Chest Tender, Respiratory Distress, Accessory Muscle Use Cardiovascular: positive: Regular Rhythm, Regular Rate, S1, S2 (normal). negative: Murmur, Gallop/S3, Gallop/S4, Irregular Gastrointestinal/Abdominal: positive: Normal Bowel Sounds, Flat, Soft. negative : Tender, Organomegaly, Pulsatile Mass Musculoskeletal: positive: Normal Inspection Integumentary: positive: Normal Color Neurologic: positive: Fully Oriented, Alert, Normal Mood/Affect, Normal Response Moderate Sedation - Procedure Monitoring Vital Signs: Procedure Monitoring Vital Signs Temperature 98.2 F 01/16/18 09:32 Pulse Rate 122 H 01/16/18 09:32 Respiratory Rate 16 01/16/18 09:32 Blood Pressure 134/74 01/16/18 09:32 O2 Sat by Pulse Oximetry (%) 100 01/16/18 09:32 ED Treatment Course - LABORATORY CBC & Chemistry Diagram: 01/16/18 10:01 01/16/18 10:01 Medical Decision Making - Medical Decision Making 01/16/18 10:52 Patient with no PMhx presenting with complains of dizziness, palpitations and intermittent SOB for 2 months. clinical exam unremarkable. EKG shows NSR. CBC,CMP, UA, Cardiac profile and d-dimer labs ordered. CXR ordered as well 01/16/18 11:54 labs are unremarkable. chest x-rays shows no acute pathology. patient stable for discharge for discharge in cardiology follow-up 01/16/18 11:59 *DC/Admit/Observation/Transfer Diagnosis at time of Disposition: Dizziness, Intermittent palpitations, Vertigo - Discharge Dispostion Disposition: HOME Condition at time of disposition: Stable Decision to Admit order: No - Prescriptions Prescriptions: Meclizine HCl 25 mg PO Q8H PRN #20 tablet PRN Reason: dizziness - Referrals Referrals: Jon Taylor MD [Staff Physician] - - Patient Instructions Printed Discharge Instructions: DI for Palpitations Additional Instructions: your labs was normal . your EKG was normal as well. your chest x-rays was normal. take prescribed medication as needed for dizziness. you should follow- up with referred tool crib attendant as soon as possible for further work-up - Post Discharge Activity
[2018-01-16 11:03] LABS: EPI CELLS RARE /HPF (FEW); URINE MUCUS RARE
[2018-01-16 11:05] LABS: ALBUMIN 3.6 g/dl (3.4-5.0); ALK PHOS 80 U/L (45-117); ANION GAP 9 MMOL/L (8-16); BILIRUBIN,TOTAL 0.5 mg/dL (0.2-1); BLOOD UREA NITROGEN 13 mg/dL (7-18); CALCIUM 8.9 mg/dL (8.5-10.1); CHLORIDE 103 mmol/L (98-107); CO2 28 mmol/L (21-32); GLUCOSE,RANDOM 97 mg/dL (74-106); POTASSIUM 4.2 mmol/L (3.5-5.1); SGOT/AST 16 U/L (15-37); SGPT/ALT 26 U/L (13-61); SODIUM 140 mmol/L (136-145); TOT PROT 7.6 g/dl (6.4-8.2)
[2018-01-16 11:18] LABS: BASO % 0.9 % (0-2.0); EOS % 1.9 % (0-4.5); HEMATOCRIT 36.7 % (32.4-45.2); HEMOGLOBIN 12.6 GM/dL (10.7-15.3); LYMPH % 34.2 % (8-40); MCH 29.7 pg (25.7-33.7); MCHC 34.3 g/dl (32.0-36.0); MEAN CELL VOLUME 86.6 fl (80-96); MEAN PLT VOLUME 8.6 fl (7.5-11.1); MONO % 9.9 % (3.8-10.2); NEUT % 53.1 % (42.8-82.8); PLATELET COUNT 279 K/MM3 (134-434); RBC 4.23 M/mm3 (3.60-5.2); RDW 13.4 % (11.6-15.6); WHITE BLOOD COUNT 4.6 K/mm3 (4.0-10.0)
--- NOTE | 2018-01-16 12:13 | PDOC ---
*Physical Exam - Vital Signs Last Vital Signs Temp Pulse Resp BP Pulse Ox 98.2 F 122 H 16 134/74 100 01/16/18 09:32 01/16/18 09:32 01/16/18 09:32 01/16/18 09:32 01/16/18 09:32 - Physical Exam Comments: 01/16/18 12:10 Vital signs normal, heart rate 84 on my examination Well-appearing, seated on stretcher talking on her cell phone Heart is regular no ectopy or audible murmur Lungs are clear Abdomen is soft and nontender Neurological exam is normal Heart Score/ECG Review #1 ECG reviewed & interpreted by me at: 10:16 General ECG Interpretation: Sinus Rhythm, Normal Rate (88), Normal Intervals ( qtc 418), No acute ischemic changes ED Treatment Course - LABORATORY CBC & Chemistry Diagram: 01/16/18 10:01 01/16/18 10:01 - ADDITIONAL ORDERS Additional order review: Laboratory Results 01/16/18 01/16/18 01/16/18 10:44 10:01 10:01 D-Dimer 445 Sodium 140 Potassium 4.2 Chloride 103 Carbon Dioxide 28 Anion Gap 9 BUN 13 Creatinine 1.0 Creat Clearance w eGFR 58.69 Random Glucose 97 Calcium 8.9 Total Bilirubin 0.5 AST 16 ALT 26 Alkaline Phosphatase 80 Creatine Kinase 115 Troponin I < 0.02 Total Protein 7.6 Albumin 3.6 Urine Color Straw Urine Appearance Clear Urine pH 5.0 D Ur Specific [place] 1.015 Urine Protein Negative Urine Glucose (UA) Negative Urine Ketones Negative Urine Blood Negative Urine Nitrite Negative Urine Bilirubin Negative Urine Urobilinogen Negative Ur Leukocyte Esterase 3+ H Urine WBC (Auto) 3 Urine RBC (Auto) 2 Ur Epithelial Cells Rare Urine Mucus Rare 01/16/18 10:01 RBC 4.23 MCV 86.6 MCHC 34.3 RDW 13.4 MPV 8.6 Neutrophils % 53.1 Lymphocytes % 34.2 Monocytes % 9.9 Eosinophils % 1.9 Basophils % 0.9 Medical Decision Making - Medical Decision Making 01/16/18 12:12 52-year-old female presents with episodes of lightheadedness intermittently for 2 weeks, occurs once or twice a day and lasts for about 40 minutes. Described as near syncope with some nausea, no headache/vision change/speech change/chest pain/palpitations/dyspnea on exertion/focal weakness. Presents for evaluation given persistence of symptoms, denies any other infectious complaints, no focal cardiopulmonary complaints. No toxic habits, normal diet, no new medications or exposures, no PE risk factors. Well-appearing here with normal vital signs, tachycardia at triage resolved on exam and on EKG No focal findings on exam Workup negative including labs, urinalysis, EKG, chest x-ray Looks and feels well, agrees with discharge plan with follow-up at [facility] and with cardiology/neurology. Understands return criteria. *DC/Admit/Observation/Transfer Diagnosis at time of Disposition: Dizziness, Intermittent palpitations - Discharge Dispostion Disposition: HOME - Referrals Referrals: Jon Taylor MD [Staff Physician] - - Patient Instructions Printed Discharge Instructions: DI for Palpitations Additional Instructions: your labs was normal . your EKG was normal as well. your chest x-rays was normal. you should follow-up with referred seam taper machine as soon as possible for further work-up - Post Discharge Activity
[2018-01-16 12:24] VITALS: BP 120/82; PULSE 80
--- NOTE | 2018-01-16 12:25 | EKG ---
Test Reason : Blood Pressure : / mmHG Vent. Rate : 088 BPM Atrial Rate : 088 BPM P-R Int : 162 ms QRS Dur : 076 ms QT Int : 346 ms P-R-T Axes : 076 035 032 degrees QTc Int : 418 ms NORMAL SINUS RHYTHM NORMAL ECG Confirmed by MD MASSEY GREGORY ([id number]) on 01/16/2018 12:24:47 PM Referred By: Confirmed By:LISA MASSEY MD
== END 2018-01-16 12:22 | disposition home or self-care (01) ==
LOC: JER 09:23
DX: R42 Dizziness and giddiness (principal); R06.02 Shortness of breath
CPT/HCPCS: 36415; 71046-TC-FY; 80053; 81003; 81015; 82550; 84484; 85025; 85379; 93005; 93010; 99283-25

== ENCOUNTER 2020-07-13 14:31 | Emergency (ER) | payer OTHER ==
[2020-07-13 14:50] VITALS: BMI 35.3
[2020-07-13 16:42] LABS: BASO % 0.9 % (0-2.0); EOS % 2.1 % (0-4.5); HEMATOCRIT 36.5 % (32.4-45.2); HEMOGLOBIN 12.1 GM/dL (10.7-15.3); MCH 28.6 pg (25.7-33.7); MCHC 33.1 g/dl (32.0-36.0); MEAN CELL VOLUME 86.2 fl (80-96); MEAN PLT VOLUME 8.4 fl (7.5-11.1); MONO % 11.2 % (3.8-10.2); NEUT % 51.8 % (42.8-82.8); PLATELET COUNT 271 K/MM3 (134-434); RBC 4.24 M/mm3 (3.60-5.2); RDW 13.6 % (11.6-15.6); WHITE BLOOD COUNT 5.6 K/mm3 (4.0-10.0)
[2020-07-13 17:10] LABS: CALCIUM 8.9 mg/dL (8.5-10.1)
[2020-07-13 17:11] LABS: ALBUMIN 3.4 g/dl (3.4-5.0); BLOOD UREA NITROGEN 10.4 mg/dL (7-18)
[2020-07-13 17:14] LABS: CREATININE 0.8 mg/dL (0.55-1.3)
[2020-07-13 17:16] LABS: BILIRUBIN,TOTAL 0.3 mg/dL (0.2-1); TOT PROT 6.9 g/dl (6.4-8.2)
[2020-07-13 19:07] VITALS: BP 137/85; PULSE 79; TEMP 97.8
== END 2020-07-13 19:07 | disposition home or self-care (01) ==
LOC: JER 14:31
DX: R20.2 Paresthesia of skin (principal)
CPT/HCPCS: 36415; 70450-TC; 80053; 82962; 85025; 99284-25

== ENCOUNTER 2021-06-24 06:34 | Emergency (ER) | payer OTHER ==
[2021-06-24 06:41] VITALS: BMI 36.3
[2021-06-24 08:39] LABS: BASO % 0.8 % (0-2.0); HEMATOCRIT 37.6 % (32.4-45.2); HEMOGLOBIN 12.6 GM/dL (10.7-15.3); LYMPH % 29.2 % (8-40); MCH 28.9 pg (25.7-33.7); MCHC 33.5 g/dl (32.0-36.0); MEAN CELL VOLUME 86.1 fl (80-96); MEAN PLT VOLUME 7.7 fl (7.5-11.1); MONO % 9.6 % (3.8-10.2); NEUT % 58.4 % (42.8-82.8); PLATELET COUNT 283 10^3/uL (134-434); RBC 4.37 M/mm3 (3.60-5.2); RDW 13.6 % (11.6-15.6); WHITE BLOOD COUNT 6.2 K/mm3 (4.0-10.0)
[2021-06-24 09:11] LABS: ALBUMIN 3.5 g/dl (3.4-5.0)
[2021-06-24 09:12] LABS: BLOOD UREA NITROGEN 10.6 mg/dL (7-18)
[2021-06-24 09:16] LABS: BILIRUBIN,TOTAL 0.4 mg/dL (0.2-1); TOT PROT 7.1 g/dl (6.4-8.2)
[2021-06-24 11:00] VITALS: BP 117/74; PULSE 78; TEMP 98
== END 2021-06-24 10:58 | disposition home or self-care (01) ==
LOC: JER 06:34
DX: K64.9 Unspecified hemorrhoids (principal)
CPT/HCPCS: 36415; 80053; 85025; 99283-25

== ENCOUNTER 2022-01-24 20:32 | Emergency (ER) | payer OTHER ==
[2022-01-24 20:39] VITALS: BP 124/82; PULSE 113; RESP 18; TEMP 98.2; BMI 36.6
[2022-01-24] MEDS ORDERED: ACETAMINOPHEN 1000 MG/100 ML BAG IVPB ONE (21:25)
[2022-01-24] MEDS ORDERED: ACETAMINOPHEN INJECTION 100 ML IVPB ONE (21:39)
[2022-01-24 21:53] LABS: PH,URINE 5.5 (5.0-8.0); URINE APPEARANCE CLEAR; URINE BILIRUBIN NEGATIVE (NEGATIVE); URINE COLOR YELLOW; URINE GLUCOSE (UA) NEGATIVE (NEGATIVE); URINE KETONE NEGATIVE (NEGATIVE); URINE LEUK ESTERASE NEGATIVE (NEGATIVE); URINE NITRITE NEGATIVE (NEGATIVE); URINE PROTEIN NEGATIVE (NEGATIVE); URINE UROBILINOGEN 0.2 mg/dL (0.2-1.0)
[2022-01-24 22:00] LABS: BASO % 0.6 % (0-2.0); EOS % 0.9 % (0-4.5); HEMATOCRIT 37.6 % (32.4-45.2); HEMOGLOBIN 12.3 GM/dL (10.7-15.3); LYMPH % 27.2 % (8-40); MCH 28.1 pg (25.7-33.7); MCHC 32.6 g/dl (32.0-36.0); MEAN CELL VOLUME 86.1 fl (80-96); MEAN PLT VOLUME 8.5 fl (7.5-11.1); MONO % 9.4 % (3.8-10.2); NEUT % 61.9 % (42.8-82.8); PLATELET COUNT 295 10^3/uL (134-434); RBC 4.36 M/mm3 (3.60-5.2); RDW 13.7 % (11.6-15.6); WHITE BLOOD COUNT 8.3 K/mm3 (4.0-10.0)
[2022-01-24 22:13] LABS: ALBUMIN 3.4 g/dl (3.4-5.0); CALCIUM 9.1 mg/dL (8.5-10.1)
[2022-01-24 22:14] LABS: BLOOD UREA NITROGEN 11.4 mg/dL (7-18)
[2022-01-24 22:18] LABS: BILIRUBIN,TOTAL 0.2 mg/dL (0.2-1); TOT PROT 6.8 g/dl (6.4-8.2)
== END 2022-01-24 23:17 | disposition home or self-care (01) ==
LOC: JER 20:32
PROC: 3E033GC Introduction of Other Therapeutic Substance into Peripheral Vein, Percutaneous Approach (ICD-10-PCS; principal; 2022-01-24)
DX: R10.84 Generalized abdominal pain (principal)
CPT/HCPCS: 36415; 80053; 81003; 83690; 85025; 87086; 99284-25

== ENCOUNTER 2022-04-15 08:30 | Emergency (ER) | payer OTHER ==
[2022-04-15 08:34] VITALS: BP 142/67; PULSE 108; RESP 18; TEMP 98; BMI 35.5
[2022-04-15] MEDS ORDERED: IBUPROFEN 600 MG TABLET (FP) PO ONE ×2 (09:07→09:12)
== END 2022-04-15 10:48 | disposition home or self-care (01) ==
LOC: JERFT 08:30 → JER 08:30 → JERFT 10:48
DX: M54.50 Low back pain, unspecified (principal); V44.5XXA Car driver injured in collision with heavy transport vehicle or bus in traffic accident, initial encounter
CPT/HCPCS: 72100-TC-FY; 99283-25

== ENCOUNTER 2023-02-18 20:38 | Emergency (ER) | payer OTHER ==
[2023-02-18 20:44] VITALS: BP 134/73; PULSE 92; RESP 18; TEMP 98.2; BMI 33.9
[2023-02-18 21:39] LABS: EPI CELLS 2 /uL (0-25.1); HYALINE CASTS 0 /uL (0-3.1); PH,URINE 5.5 (5.0-8.0); URINE APPEARANCE CLOUDY; URINE BACTERIA >9,000 /uL (0-1359); URINE BILIRUBIN NEGATIVE (NEGATIVE); URINE COLOR YELLOW; URINE GLUCOSE (UA) NEGATIVE (NEGATIVE); URINE KETONE NEGATIVE (NEGATIVE); URINE LEUK ESTERASE 2+ (NEGATIVE); URINE NITRITE POSITIVE (NEGATIVE); URINE PROTEIN TRACE (NEGATIVE); URINE RBC 95 /uL (0-23.9); URINE UROBILINOGEN 0.2 mg/dL (0.2-1.0); URINE WBC 2940 /uL (0-25.8)
[2023-02-18] MEDS ORDERED: NITROFURANTOIN MONOHYD/M-CRYST 100 MG CAPSULE PO ONE (21:47)
[2023-02-18] MEDS ORDERED: NITROFURANTOIN MACROCRYSTAL 50 MG CAPSULE (FP) ONE (22:15)
== END 2023-02-18 22:35 | disposition home or self-care (01) ==
LOC: JER 20:38
DX: R30.0 Dysuria (principal); R35.0 Frequency of micturition; N39.0 Urinary tract infection, site not specified
CPT/HCPCS: 81003; 87086; 87186; 99283-25

== ENCOUNTER 2023-09-14 23:53 | Emergency (ER) | payer OTHER ==
[2023-09-15 00:01] VITALS: BP 116/73; PULSE 91; RESP 20; TEMP 98; BMI 36.3
[2023-09-15] MEDS ORDERED: ACETAMINOPHEN 325 MG TABLET (FP) ONE (01:29)
[2023-09-15] MEDS: ACETAMINOPHEN 500 MG TABLET (FP) PO ONE (01:40)
== END 2023-09-15 05:17 | disposition home or self-care (01) ==
LOC: JER 23:53
DX: S92.512A Displaced fracture of proximal phalanx of left lesser toe(s), initial encounter for closed fracture (principal); W10.9XXA Fall (on) (from) unspecified stairs and steps, initial encounter; Y93.01 Activity, walking, marching and hiking
CPT/HCPCS: 73610-TC-LT-FY; 73630-TC-LT; 99283-25

== ENCOUNTER 2024-08-17 00:09 | Emergency (ER) | payer OTHER ==
[2024-08-17 00:22] VITALS: BP 123/68; PULSE 92; RESP 18; TEMP 97.8; BMI 33.3
[2024-08-17] MEDS ORDERED: ONDANSETRON 4 MG TABLET PO ONE (00:51)
[2024-08-17] MEDS: ONDANSETRON 4 MG TABLET PO ONE (00:53)
== END 2024-08-17 01:20 | disposition home or self-care (01) ==
LOC: JER 00:09
DX: R09.81 Nasal congestion (principal); R05.9 Cough, unspecified; J02.9 Acute pharyngitis, unspecified; R11.2 Nausea with vomiting, unspecified; B34.9 Viral infection, unspecified
CPT/HCPCS: 0241U-QW; 87651; 99283-25